=== PATIENT | male | born 1975 | race Caucasian/White ===

== ENCOUNTER 2025-03-05 09:22 | Observation (INO) ==
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
[2025-03-05 09:42] VITALS: BMI 33.2
[2025-03-05 09:43] LABS: BASOPHILS % (AUTO) 0.7 % (0.2-1.0); EOSINOPHILS % (AUTO) 0.4 % (0.9-2.9); HEMATOCRIT 53.2 % (42.0-54.0); HEMOGLOBIN 18.5 g/dL (13.5-18.0); LYMPHOCYTES # (AUTO) 0.6 X10^3/uL (1.3-2.9); LYMPHOCYTES % (AUTO) 10.6 % (21.0-51.0); MEAN CORPUSCULAR HEMOGLOBIN 30.9 pg (27.0-34.0); MEAN CORPUSCULAR HGB CONC 34.7 g/dL (33.0-35.0); MEAN CORPUSCULAR VOLUME 88.9 fL (80.0-100.0); MEAN PLATELET VOLUME 9.1 fL (7.4-11.0); MONOCYTES # (AUTO) 0.6 x10^3/uL (0.3-0.8); MONOCYTES % (AUTO) 10.1 % (0.0-13.0); NEUTROPHILS # (AUTO) 4.5 x10^3/uL (2.2-4.8); NEUTROPHILS % (AUTO) 78.2 % (42.0-75.0); PLATELET COUNT 149 X10^3/uL (150.0-450.0); RED BLOOD COUNT 5.98 X10^6/uL (4.7-6.0); RED CELL DISTRIBUTION WIDTH 13.3 % (11.6-16.5); WHITE BLOOD COUNT 5.8 X10^3/uL (3.6-10.0)
[2025-03-05 09:51] LABS: ALANINE AMINOTRANSFERASE 63 Units/L (12-78); ALBUMIN 3.7 g/dL (3.4-5.0); ALKALINE PHOSPHATASE 63 Units/L (46-116); AMYLASE 58 Units/L (25-115); ASPARTATE AMINO TRANSFERASE 29 Units/L (15-37); BLOOD UREA NITROGEN 21 mg/dL (7-18); CALCIUM 9.2 mg/dL (8.5-10.1); CARBON DIOXIDE 25.7 mmol/L (21-32); CHLORIDE 99 mmol/L (98-107); COR NA(FOR HYPERGLY) 136 mmol/L (136-145); CREATININE 0.96 mg/dL (0.70-1.30); GLUCOSE 118 mg/dL (65-99); LIPASE 57 Units/L (16-77); POTASSIUM 4.1 mmol/L (3.5-5.1); SODIUM 136 mmol/L (136-145); TOTAL PROTEIN 7.3 g/dL (6.4-8.2); eGFR NON BLACK RACES > 60 (>60)
[2025-03-05] MEDS: NS 1,000 ML IV 1,000 ML IV SCH ×2 (09:57→16:45)
[2025-03-05] MEDS: DEMEROL INJ IVP ONE ×2 (09:58→13:31)
[2025-03-05] MEDS: ZOFRAN INJ 4 MG VIAL IVP ONE ×2 (09:58→13:31)
[2025-03-05] MEDS: NS 1,000 ML IV 1,000 ML IV ONE (10:59)
[2025-03-05 12:36] LABS: BILIRUBIN,URINE NEGATIVE (NEGATIVE); BLOOD/HEMOGLOBIN,URINE NEGATIVE (NEGATIVE); GLUCOSE, URINE NEGATIVE (NEGATIVE); KETONES,URINE 3+ (NEGATIVE); LEUKOCYTE ESTERASE ,URINE NEGATIVE (NEGATIVE); NITRITES,URINE NEGATIVE (NEGATIVE); PROTEIN,URINE 1+ (NEGATIVE); UROBILINOGEN,URINE NORMAL (NORMAL)
[2025-03-05 12:38] LABS: COLOR,URINE YELLOW (YELLOW)
[2025-03-05 12:39] LABS: APPEARANCE,URINE CLEAR (CLEAR)
[2025-03-05 12:46] LABS: BACTERIA,URINE NEGATIVE /HPF (NEGATIVE); RBC,URINE NONE SEEN /HPF (0-3); SQUAMOUS EPITHELIAL CELL,UR RARE /HPF (NEGATIVE)
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
[2025-03-05] MEDS: SOLU-Medrol 125 MG VIAL IVP ONE (13:55)
[2025-03-05] MEDS: DEMEROL INJ ONE (14:46)
[2025-03-05] MEDS: NS 1,000 ML IV 1,000 ML ONE (14:46)
[2025-03-05] MEDS: SOLU-Medrol 125 MG VIAL ONE (14:47)
[2025-03-05] MEDS: OMNIPAQUE 350 mg/mL 100 mL BTL 100 ML ONE (14:47)
[2025-03-05] MEDS: READI-CAT 2 ONE (14:47)
[2025-03-05] MEDS: SOLU-Medrol 40 MG VIAL IVP SCH (14:50)
[2025-03-05] MEDS ORDERED: NovoLIN R (or HumuLIN R) SUBCUT PRN (16:36)
[2025-03-05] MEDS ORDERED: CONSULT PHARMACY - POTASSIUM & MAGNESIUM XX SCH (20:00)
[2025-03-05] MEDS: SNACK - Diabetic Appropriate PO SCH (20:00)
[2025-03-05] MEDS: ZOFRAN INJ 4 MG VIAL IVP PRN (20:07)
[2025-03-05] MEDS: DEMEROL INJ IVP PRN (20:09)
[2025-03-05] MEDS: PROTONIX INJ 40 MG VIAL IVP SCH (20:55)
[2025-03-05] MEDS: MAGNESIUM SULFATE 1 GRAM/100 mL PREMIX 1 G/100 ML BAG IV SCH (20:55)
[2025-03-06 06:11] LABS: BASOPHILS % (AUTO) 0.1 % (0.2-1.0); HEMATOCRIT 48.8 % (42.0-54.0); HEMOGLOBIN 16.8 g/dL (13.5-18.0); LYMPHOCYTES # (AUTO) 0.5 X10^3/uL (1.3-2.9); LYMPHOCYTES % (AUTO) 9.7 % (21.0-51.0); MEAN CORPUSCULAR HEMOGLOBIN 30.5 pg (27.0-34.0); MEAN CORPUSCULAR HGB CONC 34.5 g/dL (33.0-35.0); MEAN CORPUSCULAR VOLUME 88.6 fL (80.0-100.0); MEAN PLATELET VOLUME 9.4 fL (7.4-11.0); MONOCYTES # (AUTO) 0.1 x10^3/uL (0.3-0.8); MONOCYTES % (AUTO) 2.4 % (0.0-13.0); NEUTROPHILS # (AUTO) 4.6 x10^3/uL (2.2-4.8); NEUTROPHILS % (AUTO) 87.8 % (42.0-75.0); PLATELET COUNT 140 X10^3/uL (150.0-450.0); RED BLOOD COUNT 5.51 X10^6/uL (4.7-6.0); RED CELL DISTRIBUTION WIDTH 13.1 % (11.6-16.5); WHITE BLOOD COUNT 5.2 X10^3/uL (3.6-10.0)
[2025-03-06 06:20] LABS: ALANINE AMINOTRANSFERASE 46 Units/L (12-78); ALBUMIN 3.2 g/dL (3.4-5.0); ALKALINE PHOSPHATASE 53 Units/L (46-116); AMYLASE 58 Units/L (25-115); ASPARTATE AMINO TRANSFERASE 17 Units/L (15-37); BLOOD UREA NITROGEN 9 mg/dL (7-18); CALCIUM 8.6 mg/dL (8.5-10.1); CARBON DIOXIDE 25.5 mmol/L (21-32); CHLORIDE 102 mmol/L (98-107); COR CA(FOR HYPOALB) 9.2 mg/dL (8.5-10.1); COR NA(FOR HYPERGLY) 137 mmol/L (136-145); CREATININE 0.76 mg/dL (0.70-1.30); GLUCOSE 128 mg/dL (65-99); LIPASE 67 Units/L (16-77); POTASSIUM 4.2 mmol/L (3.5-5.1); SODIUM 136 mmol/L (136-145); TOTAL PROTEIN 6.6 g/dL (6.4-8.2); eGFR NON BLACK RACES > 60 (>60)
[2025-03-06] MEDS: SUPREP BOWEL PREP KIT PO SCH (07:56)
[2025-03-06] MEDS: DIPRIVAN VIAL 20 ML ONE ×2 (10:36→10:57)
[2025-03-06] MEDS: NS 1,000 ML IV 250 ML IV PRN (10:39)
[2025-03-06] MEDS: NS 500 ML IV 500 ML IV ONE (10:45)
[2025-03-06] MEDS: PROPOFOL IVP PRN (10:55)
[2025-03-06] MEDS: FLAGYL IV PREMIX 500 MG BAG 500 MG/100 ML BAG IV SCH (12:09)
[2025-03-06] MEDS ORDERED: ALPRAZOLAM ODT PO PRN (18:19)
[2025-03-06] MEDS: COZAAR PO SCH (20:58)
[2025-03-07 05:18] LABS: BASOPHILS % (AUTO) 0.1 % (0.2-1.0); HEMATOCRIT 45.7 % (42.0-54.0); HEMOGLOBIN 15.8 g/dL (13.5-18.0); LYMPHOCYTES # (AUTO) 0.6 X10^3/uL (1.3-2.9); LYMPHOCYTES % (AUTO) 7.6 % (21.0-51.0); MEAN CORPUSCULAR HEMOGLOBIN 30.6 pg (27.0-34.0); MEAN CORPUSCULAR HGB CONC 34.6 g/dL (33.0-35.0); MEAN CORPUSCULAR VOLUME 88.4 fL (80.0-100.0); MEAN PLATELET VOLUME 9.5 fL (7.4-11.0); MONOCYTES # (AUTO) 0.4 x10^3/uL (0.3-0.8); MONOCYTES % (AUTO) 5.4 % (0.0-13.0); NEUTROPHILS # (AUTO) 6.8 x10^3/uL (2.2-4.8); NEUTROPHILS % (AUTO) 86.9 % (42.0-75.0); PLATELET COUNT 154 X10^3/uL (150.0-450.0); RED BLOOD COUNT 5.17 X10^6/uL (4.7-6.0); RED CELL DISTRIBUTION WIDTH 12.7 % (11.6-16.5); WHITE BLOOD COUNT 7.8 X10^3/uL (3.6-10.0)
[2025-03-07 05:37] LABS: ALANINE AMINOTRANSFERASE 48 Units/L (12-78); ALBUMIN 2.9 g/dL (3.4-5.0); ALKALINE PHOSPHATASE 54 Units/L (46-116); ASPARTATE AMINO TRANSFERASE 17 Units/L (15-37); BLOOD UREA NITROGEN 16 mg/dL (7-18); CALCIUM 8.2 mg/dL (8.5-10.1); CARBON DIOXIDE 26.3 mmol/L (21-32); CHLORIDE 106 mmol/L (98-107); COR CA(FOR HYPOALB) 9.1 mg/dL (8.5-10.1); COR NA(FOR HYPERGLY) 141 mmol/L (136-145); CREATININE 0.86 mg/dL (0.70-1.30); GLUCOSE 158 mg/dL (65-99); POTASSIUM 3.8 mmol/L (3.5-5.1); SODIUM 140 mmol/L (136-145); TOTAL PROTEIN 5.9 g/dL (6.4-8.2); eGFR NON BLACK RACES > 60 (>60)
[2025-03-07] MEDS ORDERED: CONSULT PHARMACY - POTASSIUM & MAGNESIUM XX SCH (07:00)
[2025-03-07] MEDS: ULTRAM PO PRN (08:10)
[2025-03-07] MEDS: K-DUR TAB 20 MEQ PO SCH (08:58)
[2025-03-07 10:07] VITALS: TEMP 97.8
[2025-03-07] MEDS: DIPRIVAN VIAL 20 ML ONE (10:16)
[2025-03-07 10:52] VITALS: RESP 18
[2025-03-07 12:11] VITALS: BP 150/86; PULSE 62; O2SAT 99
== END 2025-03-07 12:10 | disposition home or self-care (01) ==
LOC: MED/SURG 09:22 → ER 09:22 → MED/SURG 14:51
PROVIDERS: ADMIT Surgery; ATTEND Surgery
DX: R19.7 Diarrhea, unspecified; K64.1 Second degree hemorrhoids; R10.84 Generalized abdominal pain; Z90.49 Acquired absence of other specified parts of digestive tract; Z03.818 Encounter for observation for suspected exposure to other biological agents ruled out; K62.1 Rectal polyp; K52.89 Other specified noninfective gastroenteritis and colitis; E83.42 Hypomagnesemia; E86.0 Dehydration; I10 Essential (primary) hypertension; E11.65 Type 2 diabetes mellitus with hyperglycemia; K64.8 Other hemorrhoids